=== PATIENT | female | born 1950 | race Caucasian/White ===

== ENCOUNTER 2023-07-27 14:09 | Inpatient (IN) | payer OTHER ==
[2023-07-27 14:51] VITALS: BMI 26.6
[2023-07-27] MEDS ORDERED: P-EPHED 60MG/TRIPROLIDI 2.5MG TABLET PO PRN (16:49)
[2023-07-27] MEDS ORDERED: POLYETHYLENE GLYCOL (HEALTHYLAX) 3350 17 GM PACKET PO PRN (16:49)
[2023-07-27] MEDS ORDERED: ONDANSETRON *ODT* 4 MG TABLET SL PRN (16:49)
[2023-07-27] MEDS ORDERED: MAGNESIUM HYDROX 2400MG/30ML ORAL SUSPENSION 30 ML CUP PO PRN (16:49)
[2023-07-27] MEDS ORDERED: BISMUTH SUBSALICYLATE 524 MG/30 ML PO PRN (16:49)
[2023-07-27] MEDS ORDERED: MAG HYDROX/AL HYDROX/SIMETH 30 ML UNIT-DOSE CUP PO PRN (16:49)
[2023-07-27] MEDS ORDERED: LOPERAMIDE HCL 2 MG CAPSULE PO PRN (16:49)
[2023-07-27] MEDS ORDERED: ACETAMINOPHEN 325 MG TABLET (FP) PO PRN (16:49)
[2023-07-27] MEDS ORDERED: guaiFENesin 600 MG TABLET.ER (FP) PO PRN (16:49)
[2023-07-27] MEDS ORDERED: BENZOCAINE/MENTHOL (CHLORASEPTIC ) LOZENGE MM PRN (16:49)
[2023-07-27] MEDS ORDERED: BENZONATATE 200 MG CAPSULE PO PRN (16:49)
[2023-07-27] MEDS ORDERED: diazePAM 5 MG TABLET PO PRN (16:54)
[2023-07-27] MEDS ORDERED: MELATONIN 5 MG TABLETS PO SCH (22:00)
[2023-07-27] MEDS: ROSUVASTATIN CA 5 MG TABLET PO SCH (22:48)
[2023-07-27] MEDS: THIAMINE HCL 100 MG TABLET (FP) PO SCH (22:48)
[2023-07-27] MEDS: levETIRAcetam 500 MG TABLET (FP) PO SCH (22:48)
[2023-07-27] MEDS: diazePAM 5 MG TABLET PO SCH (22:48)
[2023-07-28] MEDS: diazePAM 5 MG TABLET PO SCH ×4 (05:55→22:30)
[2023-07-28] MEDS: metFORMIN HCL 500 MG TABLET (FP) PO SCH (07:12)
[2023-07-28 10:33] LABS: HEMATOCRIT 31.6 % (32.4-45.2); HEMOGLOBIN 10.7 GM/dL (10.7-15.3); MCH 31.5 pg (25.7-33.7); MCHC 33.8 g/dl (32.0-36.0); MEAN CELL VOLUME 93.2 fl (80-96); MEAN PLT VOLUME 7.6 fl (7.5-11.1); PLATELET COUNT 209 10^3/uL (134-434); RBC 3.39 M/mm3 (3.60-5.2); RDW 13.1 % (11.6-15.6)
[2023-07-28 10:40] LABS: POTASSIUM 4.3 mmol/L (3.5-5.1)
[2023-07-28 10:43] LABS: CALCIUM 8.9 mg/dL (8.5-10.1)
[2023-07-28 10:44] LABS: ALBUMIN 3.4 g/dl (3.4-5.0); BLOOD UREA NITROGEN 13.1 mg/dL (7-18)
[2023-07-28 10:47] LABS: CREATININE 0.9 mg/dL (0.55-1.3); TOT PROT 6.3 g/dl (6.4-8.2)
[2023-07-28 10:48] LABS: BILIRUBIN,TOTAL 0.6 mg/dL (0.2-1)
[2023-07-28] MEDS ORDERED: IBUPROFEN 400 MG TABLET (FP) PO PRN (10:55)
[2023-07-28] MEDS: PANTOPRAZOLE 20 MG TABLET PO SCH (11:05)
[2023-07-28] MEDS: levETIRAcetam 500 MG TABLET (FP) PO SCH ×2 (11:05→22:30)
[2023-07-28] MEDS: PRENATAL VITAMINS W/ FOLIC ACID TABLET (FP) PO SCH (11:05)
[2023-07-28] MEDS: NAPROXEN 500 MG TABLET PO SCH (11:05)
[2023-07-28] MEDS: SERTRALINE HCL 50 MG TABLET (FP) PO SCH (12:02)
[2023-07-28] MEDS ORDERED: SUVOREXANT 10 MG TABLET PO PRN ×2 (22:00)
[2023-07-28] MEDS: ROSUVASTATIN CA 5 MG TABLET PO SCH (22:30)
[2023-07-28] MEDS: THIAMINE HCL 100 MG TABLET (FP) PO SCH (22:30)
[2023-07-28] MEDS: SUVOREXANT 5 MG TABLET PO PRN (22:39)
[2023-07-29] MEDS: diazePAM 5 MG TABLET PO SCH ×3 (06:09→22:02)
[2023-07-29] MEDS: metFORMIN HCL 500 MG TABLET (FP) PO SCH (07:18)
[2023-07-29] MEDS ORDERED: SUMAtriptan SUCCINATE 50 MG TABLET PO ONE (09:30)
[2023-07-29] MEDS: levETIRAcetam 500 MG TABLET (FP) PO SCH ×2 (10:41→22:02)
[2023-07-29] MEDS: NAPROXEN 500 MG TABLET PO SCH (10:41)
[2023-07-29] MEDS: PANTOPRAZOLE 20 MG TABLET PO SCH (10:41)
[2023-07-29] MEDS: SERTRALINE HCL 50 MG TABLET (FP) PO SCH (10:41)
[2023-07-29] MEDS: PRENATAL VITAMINS W/ FOLIC ACID TABLET (FP) PO SCH (10:42)
[2023-07-29] MEDS: ROSUVASTATIN CA 5 MG TABLET PO SCH (22:02)
[2023-07-29] MEDS: THIAMINE HCL 100 MG TABLET (FP) PO SCH (22:03)
[2023-07-30] MEDS: diazePAM 5 MG TABLET PO SCH ×2 (06:05→17:33)
[2023-07-30] MEDS: metFORMIN HCL 500 MG TABLET (FP) PO SCH (06:05)
[2023-07-30] MEDS: PRENATAL VITAMINS W/ FOLIC ACID TABLET (FP) PO SCH (09:51)
[2023-07-30] MEDS: levETIRAcetam 500 MG TABLET (FP) PO SCH ×2 (09:51→22:22)
[2023-07-30] MEDS: PANTOPRAZOLE 20 MG TABLET PO SCH (09:52)
[2023-07-30] MEDS: NAPROXEN 500 MG TABLET PO SCH (09:52)
[2023-07-30] MEDS: SERTRALINE HCL 50 MG TABLET (FP) PO SCH (09:52)
[2023-07-30 18:45] VITALS: RESP 18
[2023-07-30] MEDS: SUVOREXANT 5 MG TABLET PO PRN (22:22)
[2023-07-30] MEDS: ROSUVASTATIN CA 5 MG TABLET PO SCH (22:22)
[2023-07-30] MEDS: THIAMINE HCL 100 MG TABLET (FP) PO SCH (22:22)
[2023-07-30 23:43] VITALS: BP 141/86; PULSE 99; TEMP 97.5
[2023-07-31] MEDS ORDERED: diazePAM 5 MG TABLET PO ONE (06:00)
[2023-07-31] MEDS: metFORMIN HCL 500 MG TABLET (FP) PO SCH (06:30)
== END 2023-07-31 00:15 | disposition other institution (70) | DRG 897 ==
LOC: YASAS 14:09 → Y6N 17:21
PROVIDERS: ADMIT Allergy & Immunology; ATTEND Surgery
PROC: HZ2ZZZZ Detoxification Services for Substance Abuse Treatment (ICD-10-PCS; principal; 2023-07-27)
DX: F13.230 Sedative, hypnotic or anxiolytic dependence with withdrawal, uncomplicated (principal); F19.280 Other psychoactive substance dependence with psychoactive substance-induced anxiety disorder; F19.282 Other psychoactive substance dependence with psychoactive substance-induced sleep disorder; F41.9 Anxiety disorder, unspecified; F32.A Depression, unspecified; F41.0 Panic disorder [episodic paroxysmal anxiety]; J44.9 Chronic obstructive pulmonary disease, unspecified; E11.9 Type 2 diabetes mellitus without complications; Z79.84 Long term (current) use of oral hypoglycemic drugs; Z87.891 Personal history of nicotine dependence; Z62.810 Personal history of physical and sexual abuse in childhood; Z91.410 Personal history of adult physical and sexual abuse; Z86.69 Personal history of other diseases of the nervous system and sense organs; Z88.8 Allergy status to other drugs, medicaments and biological substances
CPT/HCPCS: 36415; 80053; 82962; 85027; 86780; 87635; Q0162

== ENCOUNTER 2023-07-31 00:39 | Inpatient (IN) | payer OTHER ==
[2023-07-31] MEDS ORDERED: diazePAM CARPU-JECT 10 MG/2 ML DISP.SYRIN ONE (01:01)
[2023-07-31 01:23] LABS: BASO % 0.4 % (0-2.0); EOS % 0.3 % (0-4.5); HEMATOCRIT 34.2 % (32.4-45.2); HEMOGLOBIN 11.3 GM/dL (10.7-15.3); MCHC 33.1 g/dl (32.0-36.0); MEAN CELL VOLUME 93.5 fl (80-96); MEAN PLT VOLUME 7.8 fl (7.5-11.1); NEUT % 66.3 % (42.8-82.8); PLATELET COUNT 279 10^3/uL (134-434); RBC 3.66 M/mm3 (3.60-5.2); RDW 13.4 % (11.6-15.6); WHITE BLOOD COUNT 11.6 K/mm3 (4.0-10.0)
[2023-07-31 01:47] LABS: ALBUMIN 4.1 g/dl (3.4-5.0); BLOOD UREA NITROGEN 8.1 mg/dL (7-18); CALCIUM 9.2 mg/dL (8.5-10.1)
[2023-07-31 01:52] LABS: BILIRUBIN,TOTAL 0.3 mg/dL (0.2-1); TOT PROT 7.2 g/dl (6.4-8.2)
[2023-07-31] MEDS ORDERED: diazePAM CARPU-JECT 10 MG/2 ML DISP.SYRIN IVPUSH ONE ×2 (03:26)
[2023-07-31] MEDS ORDERED: MAGNESIUM HYDROX 2400MG/30ML ORAL SUSPENSION 30 ML CUP PO PRN (05:40)
[2023-07-31] MEDS ORDERED: BISMUTH SUBSALICYLATE 524 MG/30 ML PO PRN (05:40)
[2023-07-31] MEDS ORDERED: LOPERAMIDE HCL 2 MG CAPSULE PO PRN (05:40)
[2023-07-31] MEDS ORDERED: ONDANSETRON *ODT* 4 MG TABLET SL PRN (05:40)
[2023-07-31] MEDS ORDERED: P-EPHED 60MG/TRIPROLIDI 2.5MG TABLET PO PRN (05:40)
[2023-07-31] MEDS ORDERED: MAG HYDROX/AL HYDROX/SIMETH 30 ML UNIT-DOSE CUP PO PRN (05:40)
[2023-07-31 06:39] LABS: MAGNESIUM 1.6 mg/dL (1.8-2.4)
[2023-07-31 06:43] LABS: PHOSPHOROUS 2.2 mg/dL (2.5-4.9)
[2023-07-31] MEDS ORDERED: levETIRAcetam 500 MG/5 ML INJECTION VIAL IVPB ONE ×2 (06:47→07:41)
[2023-07-31] MEDS: INSULIN SLIDING SCALE (NOVOLOG) 1 VIAL SQ SCH ×2 (07:55→11:14)
[2023-07-31] MEDS ORDERED: PANTOPRAZOLE 20 MG TABLET PO SCH (10:00)
[2023-07-31] MEDS ORDERED: NAPROXEN 500 MG TABLET PO SCH (10:00)
[2023-07-31] MEDS ORDERED: NAPROXEN 500 MG TABLET ONE (10:13)
[2023-07-31] MEDS ORDERED: PANTOPRAZOLE 20 MG TABLET PO ONE (10:14)
[2023-07-31] MEDS ORDERED: SERTRALINE HCL 50 MG TABLET (FP) ONE (10:14)
[2023-07-31] MEDS: SERTRALINE HCL 50 MG TABLET (FP) PO SCH (10:23)
[2023-07-31 15:26] LABS: EPI CELLS 13 /uL (0-25.1); HYALINE CASTS 1 /uL (0-3.1); URINE APPEARANCE CLEAR; URINE BACTERIA 115 /uL (0-1359); URINE BILIRUBIN NEGATIVE (NEGATIVE); URINE COLOR YELLOW; URINE GLUCOSE (UA) NEGATIVE (NEGATIVE); URINE KETONE TRACE (NEGATIVE); URINE LEUK ESTERASE 2+ (NEGATIVE); URINE NITRITE NEGATIVE (NEGATIVE); URINE PROTEIN NEGATIVE (NEGATIVE); URINE RBC 30 /uL (0-23.9); URINE UROBILINOGEN 0.2 mg/dL (0.2-1.0); URINE WBC 318 /uL (0-25.8)
[2023-07-31] MEDS ORDERED: chlordiazePOXIDE HCL 25 MG CAPSULE ONE ×2 (15:56→23:23)
[2023-07-31] MEDS: chlordiazePOXIDE HCL 25 MG CAPSULE PO SCH ×2 (16:00→23:24)
[2023-07-31] MEDS ORDERED: ROSUVASTATIN CA 5 MG TABLET ONE (23:23)
[2023-07-31] MEDS: ROSUVASTATIN CA 5 MG TABLET PO SCH (23:24)
[2023-08-01] MEDS: SUVOREXANT 5 MG TABLET PO PRN (02:18)
[2023-08-01] MEDS: TOLTERODINE TARTRATE 2 MG TABLET PO SCH ×3 (02:18→22:48)
[2023-08-01] MEDS ORDERED: chlordiazePOXIDE HCL 25 MG CAPSULE ONE ×3 (06:07→22:37)
[2023-08-01] MEDS: chlordiazePOXIDE HCL 25 MG CAPSULE PO SCH ×3 (06:39→22:42)
[2023-08-01 08:03] LABS: INR 1.08 (0.83-1.09); PROTHROMBIN TIME (PATIENT) 12.5 SEC (9.7-13.0)
[2023-08-01 08:06] LABS: ACTIVATED PTT 26.2 SECONDS (25.2-36.5); BASO % 0.4 % (0-2.0); EOS % 0.4 % (0-4.5); HEMATOCRIT 36.1 % (32.4-45.2); HEMOGLOBIN 11.7 GM/dL (10.7-15.3); LYMPH % 18.1 % (8-40); MCH 30.5 pg (25.7-33.7); MCHC 32.4 g/dl (32.0-36.0); MEAN CELL VOLUME 94.1 fl (80-96); MEAN PLT VOLUME 7.2 fl (7.5-11.1); MONO % 7.1 % (3.8-10.2); PLATELET COUNT 260 10^3/uL (134-434); RBC 3.84 M/mm3 (3.60-5.2); WHITE BLOOD COUNT 11.2 K/mm3 (4.0-10.0)
[2023-08-01 08:07] LABS: POTASSIUM 3.5 mmol/L (3.5-5.1)
[2023-08-01 08:10] LABS: CALCIUM 8.8 mg/dL (8.5-10.1); MAGNESIUM 1.7 mg/dL (1.8-2.4)
[2023-08-01 08:13] LABS: CREATININE 0.7 mg/dL (0.55-1.3)
[2023-08-01] MEDS: PANTOPRAZOLE 40 MG TABLET PO SCH (10:02)
[2023-08-01] MEDS: SERTRALINE HCL 50 MG TABLET (FP) PO SCH (10:03)
[2023-08-01] MEDS: ROSUVASTATIN CA 5 MG TABLET PO SCH (22:33)
[2023-08-01] MEDS ORDERED: ROSUVASTATIN CA 5 MG TABLET ONE (22:37)
[2023-08-02 02:00] VITALS: BMI 25.4
[2023-08-02] MEDS: chlordiazePOXIDE HCL 25 MG CAPSULE PO SCH ×3 (06:08→22:30)
[2023-08-02] MEDS ORDERED: MAGNESIUM SULF 50% (8.12 MEQ/2 ML-1 GM VIAL) IVPB ONE (07:45)
[2023-08-02] MEDS: SERTRALINE HCL 50 MG TABLET (FP) PO SCH ×2 (09:51→10:46)
[2023-08-02] MEDS: PANTOPRAZOLE 40 MG TABLET PO SCH (09:51)
[2023-08-02] MEDS: TOLTERODINE TARTRATE 2 MG TABLET PO SCH (09:53)
[2023-08-02 10:03] LABS: HEMATOCRIT 32.7 % (32.4-45.2); HEMOGLOBIN 10.9 GM/dL (10.7-15.3); MCH 30.5 pg (25.7-33.7); MCHC 33.3 g/dl (32.0-36.0); MEAN CELL VOLUME 91.8 fl (80-96); MEAN PLT VOLUME 7.2 fl (7.5-11.1); PLATELET COUNT 239 10^3/uL (134-434); RBC 3.56 M/mm3 (3.60-5.2); RDW 12.8 % (11.6-15.6); WHITE BLOOD COUNT 17.3 K/mm3 (4.0-10.0)
[2023-08-02 10:21] LABS: POTASSIUM 3.2 mmol/L (3.5-5.1)
[2023-08-02 10:22] LABS: CALCIUM 8.5 mg/dL (8.5-10.1)
[2023-08-02 10:23] LABS: BLOOD UREA NITROGEN 14.8 mg/dL (7-18); MAGNESIUM 2.8 mg/dL (1.8-2.4)
[2023-08-02 10:26] LABS: CREATININE 0.8 mg/dL (0.55-1.3); PHOSPHOROUS 2.3 mg/dL (2.5-4.9)
[2023-08-02 11:04] LABS: OPIATES, URI NEGATIVE (NEGATIVE); PHENCYCLIDINE,URINE NEGATIVE (NEGATIVE); URINE BARBITURATES NEGATIVE (NEGATIVE)
[2023-08-02 11:05] LABS: COCAINE, UR NEGATIVE (NEGATIVE); METHADONE, UR NEGATIVE (NEGATIVE); URINE AMPHETAMINES NEGATIVE (NEGATIVE)
[2023-08-02 11:27] LABS: URINE BENZODIAZEPINES POSITIVE (NEGATIVE)
[2023-08-02] MEDS ORDERED: NAPH,MB-DB/K PH,MBDB POWDER PACKET PO ONE (14:30)
[2023-08-02] MEDS ORDERED: KCL 10 MEQ IVPB 10 MEQ/100 ML INFUS.BAG IVPB SCH (21:15)
[2023-08-02] MEDS ORDERED: SODIUM CHLORIDE 1,000 ML IV SCH (21:30)
[2023-08-02] MEDS ORDERED: SODIUM CHLORIDE 1,000 ML with POTASSIUM CHLORIDE 40 MEQ IV SCH (21:30)
[2023-08-02] MEDS ORDERED: POTASSIUM CHLORIDE 40 MEQ in SODIUM CHLORIDE 1,000 ML IV SCH (21:59)
[2023-08-02] MEDS: NAPH,MB-DB/K PH,MBDB POWDER PACKET PO SCH (22:30)
[2023-08-02] MEDS: ROSUVASTATIN CA 5 MG TABLET PO SCH (22:31)
[2023-08-02] MEDS: SUVOREXANT 5 MG TABLET PO PRN (22:31)
[2023-08-03] MEDS: chlordiazePOXIDE HCL 25 MG CAPSULE PO SCH (05:55)
[2023-08-03 08:02] LABS: POTASSIUM 3.6 mmol/L (3.5-5.1)
[2023-08-03 08:10] LABS: BASO % 0.5 % (0-2.0); EOS % 4.2 % (0-4.5); HEMATOCRIT 32.2 % (32.4-45.2); HEMOGLOBIN 10.7 GM/dL (10.7-15.3); MCH 31.4 pg (25.7-33.7); MCHC 33.4 g/dl (32.0-36.0); MEAN CELL VOLUME 94.1 fl (80-96); MEAN PLT VOLUME 8.3 fl (7.5-11.1); MONO % 7.8 % (3.8-10.2); NEUT % 71.5 % (42.8-82.8); PLATELET COUNT 271 10^3/uL (134-434); RBC 3.42 M/mm3 (3.60-5.2)
[2023-08-03 08:14] LABS: BLOOD UREA NITROGEN 14.6 mg/dL (7-18); CALCIUM 8.4 mg/dL (8.5-10.1)
[2023-08-03 08:15] LABS: MAGNESIUM 2.1 mg/dL (1.8-2.4)
[2023-08-03 08:17] LABS: CREATININE 0.9 mg/dL (0.55-1.3); PHOSPHOROUS 2.8 mg/dL (2.5-4.9)
[2023-08-03 08:18] LABS: ALBUMIN 3.4 g/dl (3.4-5.0)
[2023-08-03 08:19] LABS: BILIRUBIN,TOTAL 0.8 mg/dL (0.2-1)
[2023-08-03 08:22] LABS: TOT PROT 6.2 g/dl (6.4-8.2)
[2023-08-03] MEDS: NAPH,MB-DB/K PH,MBDB POWDER PACKET PO SCH ×2 (10:11→21:24)
[2023-08-03] MEDS: SERTRALINE HCL 50 MG TABLET (FP) PO SCH (10:11)
[2023-08-03] MEDS: buPROPion HCL 75 MG TABLET PO SCH (10:11)
[2023-08-03] MEDS: PANTOPRAZOLE 40 MG TABLET PO SCH (10:12)
[2023-08-03] MEDS: chlordiazePOXIDE HCL 10 MG CAPSULE PO SCH ×2 (14:13→21:27)
[2023-08-03] MEDS ORDERED: DOCUSATE SODIUM 100 MG CAPSULE (FP) PO ONE (17:26)
[2023-08-03] MEDS: DOCUSATE SODIUM 100 MG CAPSULE (FP) PO SCH (21:23)
[2023-08-03] MEDS: POLYETHYLENE GLYCOL (HEALTHYLAX) 3350 17 GM PACKET PO SCH (21:23)
[2023-08-03] MEDS: ROSUVASTATIN CA 5 MG TABLET PO SCH (21:24)
[2023-08-03] MEDS: SUVOREXANT 5 MG TABLET PO PRN (23:08)
[2023-08-04] MEDS: chlordiazePOXIDE HCL 10 MG CAPSULE PO SCH ×3 (06:19→22:15)
[2023-08-04 06:59] LABS: BASO % 0.6 % (0-2.0); EOS % 4.6 % (0-4.5); HEMATOCRIT 30.6 % (32.4-45.2); MCH 30.9 pg (25.7-33.7); MCHC 32.8 g/dl (32.0-36.0); MEAN PLT VOLUME 7.2 fl (7.5-11.1); MONO % 8.9 % (3.8-10.2); NEUT % 66.9 % (42.8-82.8); PLATELET COUNT 229 10^3/uL (134-434); RBC 3.25 M/mm3 (3.60-5.2); RDW 13.1 % (11.6-15.6); WHITE BLOOD COUNT 10.3 K/mm3 (4.0-10.0)
[2023-08-04 07:17] LABS: POTASSIUM 3.6 mmol/L (3.5-5.1)
[2023-08-04 07:29] LABS: ALBUMIN 3.1 g/dl (3.4-5.0); CALCIUM 8.2 mg/dL (8.5-10.1)
[2023-08-04 07:30] LABS: BLOOD UREA NITROGEN 13.8 mg/dL (7-18)
[2023-08-04 07:32] LABS: CREATININE 0.6 mg/dL (0.55-1.3); PHOSPHOROUS 3.4 mg/dL (2.5-4.9)
[2023-08-04 07:33] LABS: BILIRUBIN,TOTAL 0.5 mg/dL (0.2-1)
[2023-08-04] MEDS: POLYETHYLENE GLYCOL (HEALTHYLAX) 3350 17 GM PACKET PO SCH ×2 (09:59→22:11)
[2023-08-04] MEDS: NAPH,MB-DB/K PH,MBDB POWDER PACKET PO SCH (09:59)
[2023-08-04] MEDS: PANTOPRAZOLE 40 MG TABLET PO SCH (09:59)
[2023-08-04] MEDS: buPROPion HCL 75 MG TABLET PO SCH (10:02)
[2023-08-04 10:23] VITALS: RESP 18
[2023-08-04] MEDS: ROSUVASTATIN CA 5 MG TABLET PO SCH (22:12)
[2023-08-04] MEDS: DOCUSATE SODIUM 100 MG CAPSULE (FP) PO SCH (22:12)
[2023-08-05 07:29] LABS: BASO % 0.7 % (0-2.0); EOS % 4.7 % (0-4.5); HEMATOCRIT 29.8 % (32.4-45.2); HEMOGLOBIN 10.3 GM/dL (10.7-15.3); MCH 31.6 pg (25.7-33.7); MCHC 34.5 g/dl (32.0-36.0); MEAN CELL VOLUME 91.6 fl (80-96); MEAN PLT VOLUME 7.6 fl (7.5-11.1); MONO % 8.6 % (3.8-10.2); PLATELET COUNT 232 10^3/uL (134-434); RBC 3.25 M/mm3 (3.60-5.2); RDW 13.2 % (11.6-15.6); WHITE BLOOD COUNT 8.2 K/mm3 (4.0-10.0)
[2023-08-05] MEDS: chlordiazePOXIDE HCL 10 MG CAPSULE PO SCH (07:38)
[2023-08-05 09:16] LABS: POTASSIUM 3.7 mmol/L (3.5-5.1)
[2023-08-05 09:24] LABS: ALBUMIN 3.2 g/dl (3.4-5.0); CALCIUM 8.6 mg/dL (8.5-10.1); MAGNESIUM 1.9 mg/dL (1.8-2.4)
[2023-08-05 09:27] LABS: CREATININE 0.7 mg/dL (0.55-1.3)
[2023-08-05 09:29] LABS: BILIRUBIN,TOTAL 0.5 mg/dL (0.2-1)
[2023-08-05] MEDS: buPROPion HCL 75 MG TABLET PO SCH (10:20)
[2023-08-05] MEDS: PANTOPRAZOLE 40 MG TABLET PO SCH (10:20)
[2023-08-05] MEDS: POLYETHYLENE GLYCOL (HEALTHYLAX) 3350 17 GM PACKET PO SCH (10:20)
[2023-08-05] MEDS ORDERED: chlordiazePOXIDE 5 MG CAPSULE PO SCH (14:00)
[2023-08-05 15:28] VITALS: BP 106/64; PULSE 64; TEMP 98.2
== END 2023-08-06 09:33 | DRG 101 ==
LOC: JER 00:39 → JERBED 03:41 → J4W 08-02 01:40 → OBSVTOIN 08-02 09:39
PROVIDERS: ADMIT Internal Medicine; ATTEND Internal Medicine
DX: G40.909 Epilepsy, unspecified, not intractable, without status epilepticus (principal); F13.239 Sedative, hypnotic or anxiolytic dependence with withdrawal, unspecified; E87.1 Hypo-osmolality and hyponatremia; F13.20 Sedative, hypnotic or anxiolytic dependence, uncomplicated; F41.9 Anxiety disorder, unspecified; F32.9 Major depressive disorder, single episode, unspecified; F19.980 Other psychoactive substance use, unspecified with psychoactive substance-induced anxiety disorder; R73.03 Prediabetes; J44.9 Chronic obstructive pulmonary disease, unspecified; E87.6 Hypokalemia; G47.00 Insomnia, unspecified
CPT/HCPCS: 36415; 70450-TC; 71045-TC-FY; 72125-TC; 80048; 80053; 80307; 81003; 82550; 82553; 82607; 82962; 83036; 83605; 83735; 83930; 83935; 84100; 84146; 84443; 84484; 85025; 85027; 85610; 85730; 87086; 93005; 93010; 94010; 97116-GP; 97162-GP; 99285-25; G0378